=== PATIENT | male | born 1980 | race Caucasian/White ===

== ENCOUNTER 2025-04-12 08:28 | Day surgery (SDC) | payer OTHER, SELFPAY ==
[2025-04-10 14:00] VITALS: BMI 30.1
--- NOTE | 2025-04-11 09:19 | P.CONAN_ITS ---
HPI - Anesthesia Eval Consult details Narrative: 44yo M for Colonoscopy [facility] Past Medical History Medical History (Updated 04/10/25 @ 13:58 by Lea Abbasi, RN) Tinnitus Asthma Depression PTSD (post-traumatic stress disorder) Sciatica GERD (gastroesophageal reflux disease) HLD (hyperlipidemia) HTN (hypertension) Surgical History Surgical History (Updated 04/10/25 @ 13:58 by Lea Abbasi, RN) History of arthroscopy of left knee History of repair of vocal cord Meds Allergies Allergy/AdvReac Type Severity Reaction Status Date / Time No Known Allergies Allergy Verified 04/10/25 13:58 Home Medications ?Medication ?Instructions ?Recorded ?Confirmed ?Last Taken ?Type amlodipine 10 mg tablet 10 mg PO DAILY 04/10/25 04/10/25 Unknown History omeprazole 20 mg capsule,delayed 20 mg PO DAILY 04/10/25 04/10/25 Unknown History release rosuvastatin 10 mg tablet 10 mg PO DAILY 04/10/25 04/10/25 Unknown History Exam Height,Weight and Vital Signs: Height 6 ft Weight 100.698 kg Assessment and Plan Assessment Anesthesia Assessment: Chart Reviewed
--- NOTE | 2025-04-12 08:39 | P.CONAN_ITS ---
[facility] Past Medical History Medical History Tinnitus Asthma Depression PTSD (post-traumatic stress disorder) Sciatica GERD (gastroesophageal reflux disease) HLD (hyperlipidemia) HTN (hypertension) Functional capacity: independent ambulation Family History Family history of problems with anesthesia: No Surgical History Surgical History History of arthroscopy of left knee History of repair of vocal cord History of Problems with Anesthesia: No Social History Social History Advance Directives: No Advance Directives Information Provided: Yes Meds Allergies Allergy/AdvReac Type Severity Reaction Status Date / Time No Known Allergies Allergy Verified 04/10/25 13:58 Active Medications: Current Medications Albuterol Sulfate (Albuterol Sulfate (0.083%) 2.5 Mg/3 Ml Vial.Neb) 2.5 mg INHALE ONCE PRN PRN Reason: Shortness of Breath/Wheezing Lactated Ringer's (Lr) 1,000 mls @ 100 mls/hr IVCONT .Q10H BRETT Home Medications ?Medication ?Instructions ?Recorded ?Confirmed ?Last Taken ?Type amlodipine 10 mg tablet 10 mg PO DAILY 04/10/25 04/10/25 Unknown History omeprazole 20 mg capsule,delayed 20 mg PO DAILY 04/10/25 04/10/25 Unknown History release rosuvastatin 10 mg tablet 10 mg PO DAILY 04/10/25 04/10/25 Unknown History Exam Height,Weight and Vital Signs: Height 6 ft Weight 100.698 kg Airway Mallampati Class: II TM Dist: >3cm Neck ROM: Full Heart: RRR Lungs: CTA Assessment and Plan Assessment Anesthesia Assessment: Anesthesia Plan Discussed Final Anesthetic Review Family History of Problems with Anesthesia: No History of Problems with Anesthesia: No NPO: Yes ASA Class: II Final Preanesthetic Review: Meds/Allgs Chart Reviewed, Consent Obtained/Reviewed and Anes Risks/Benef Reviewed Patient Risk: Low Procedure Risk: Low Anesthetic Plan Anesthetic Plan: MAC: Disposition: Standard PACU
[2025-04-12 08:42] VITALS: BMI 29.5
[2025-04-12] MEDS: Lactated Ringers 1,000 ML 100 ML IVCONT (08:53)
[2025-04-12 08:54] VITALS: BP 120/71; PULSE 64; RESP 17; TEMP 36.5; O2SAT 99
--- NOTE | 2025-04-12 09:41 | MHC.SHP ---
Pre-Procedural Eval Section A - 24 Hr Update-Section A only Date of Service: 04/12/25 The patient is an INPATIENT: No The patient has been examined within 24 hours of the surgical procedure. The History & Physical has been completed within 30 days and I have reviewed it.: Yes Section B - Complete if H&P > 30 days Chief Complaint: screening Allergies: Allergies Allergy/AdvReac Type Severity Reaction Status Date / Time No Known Allergies Allergy Verified 04/12/25 08:43 Plan I have reviewed the history and physical and performed a pertinent physical examination on my patient. No changes have occurred unless specified. Time Spent With Patient Time: Total time managing care of this patient today ____ minutes.
[2025-04-12 10:13] VITALS: BP 89/42; PULSE 69; RESP 16; TEMP 36.1; O2SAT 94
--- NOTE | 2025-04-12 10:18 | P.BOP_ITS ---
Brief Operative Note Date of Service: 04/12/25 Pre-op diagnosis: screening Post-op diagnosis: same Procedure: colonoscopy Surgeon: Ellis Thomson MD Was an Personnel Training Officer used for this Procedure?: No Estimated blood loss (mL): 5 Pathology: other Condition: stable Disposition: PACU
[2025-04-12 10:28] VITALS: BP 109/70; PULSE 64; RESP 18; TEMP 36.1; O2SAT 98
--- NOTE | 2025-04-12 10:31 | HO.POSTANES ---
Post Anesthesia Evaluation Post Anesthesia Evaluation Date of Service: 04/12/25 Vital Signs: Vital Signs Temp Pulse Resp BP Pulse Ox O2 Del Method 04/12/25 10:13 97 F 69 16 89/42 L 94 Room Air 04/12/25 08:54 97.7 F 64 17 120/71 99 Room Air Anesthesia: Monitored Mental Status: Awake Pain Control: Satisfactory Nausea/Vomiting: None Hydration: Adequate Anesthesia-Related Issues: No Anes. Related Issues
--- NOTE | 2025-04-12 11:08 | OP_ITS ---
DATE OF SERVICE: 04/12/2025 SURGEON: Ellis Thomson MD INDICATIONS: Colon cancer screening. PREOPERATIVE DIAGNOSIS: POSTOPERATIVE DIAGNOSIS: PROCEDURE PERFORMED: Colonoscopy to the terminal ileum with snare polypectomy. ESTIMATED BLOOD LOSS: COMPLICATIONS: ANESTHESIA: Monitored anesthesia care. ASSISTANTS: SPECIMENS: PROCEDURE DESCRIPTION: A history and physical was performed. The risks and benefits of the procedure were explained to the patient and informed consent was obtained. The patient was placed in the left lateral decubitus position. A digital rectal exam was performed and was found to be normal. The Olympus pediatric video colonoscope was introduced in the rectum and advanced to the cecum. The cecum was identified by transillumination, palpation, and identification of ileocecal valve. Examination was performed. The scope was removed. He tolerated the procedure well and was taken to recovery area in stable condition. FINDINGS: The terminal ileum was examined and appeared normal. The visualized colonic mucosa was normal. The quality of the prep was good. Two polyps were identified and removed with a cold snare, both measured less than 5 mm. These were located in the right colon and at 60 cm. No other polyps were identified. Retroflexed examination showed some moderate-sized internal hemorrhoids. IMPRESSION: Colon polyps. RECOMMENDATION: Follow up the biopsy results. MD SAM [place]/MODL / [id number]
== END 2025-04-12 10:49 | disposition home or self-care (01) ==
PROVIDERS: Visit Provider Internal Medicine Gastroenterology
PROC: 0DJD8ZZ Inspection of Lower Intestinal Tract, Via Natural or Artificial Opening Endoscopic (ICD-10-PCS; CPT 45378; principal; 2025-04-12 10:10)
DX: Z12.11 Encounter for screening for malignant neoplasm of colon (principal); D12.2 Benign neoplasm of ascending colon; D12.4 Benign neoplasm of descending colon; K64.8 Other hemorrhoids; I10 Essential (primary) hypertension; E78.5 Hyperlipidemia, unspecified; K21.9 Gastro-esophageal reflux disease without esophagitis; M54.30 Sciatica, unspecified side; F32.A Depression, unspecified; F43.10 Post-traumatic stress disorder, unspecified; J45.909 Unspecified asthma, uncomplicated; H93.19 Tinnitus, unspecified ear; Z79.899 Other long term (current) drug therapy; Z98.890 Other specified postprocedural states
CPT/HCPCS: 45385; 88305; J2003; J2704